=== PATIENT | female | born 1965 | race Caucasian/White ===

== ENCOUNTER 2016-11-10 12:35 | Emergency (ER) | payer OTHER ==
[~2016-11-10] VITALS: Ht 162.6 cm; Wt 79.0 kg
[~2016-11-10 12:35] MED LIST: HYD25 PO; IBUP-1542 PO; OXYC-281 PO
[2016-11-10 12:40] VITALS: Ht 162.6 cm; Wt 79.0 kg
[2016-11-10] MEDS ORDERED: NICARDipine HCL 30 MG CAPSULE PO ONE (13:00)
[2016-11-10] MEDS ORDERED: HYD25 PO (13:01)
[2016-11-10 13:43] VITALS: BP 190/81; PULSE 79
--- NOTE | 2016-11-10 13:44 | ERD ---
ER Documentation Chief Complaint Date/Time DATE: 11/10/16 TIME: 13:41 Chief Complaint seen @ clinic today, BP high HPI 51-year-old female history of prolonged essential hypertension been noncompliant with recommended medication regimen for 8 years. 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 The patient has no complaints today but she went to her current clinic who noted that she has significantly elevated blood pressure and was sent to the emergency room. She denies any headache, chest pain, shortness of breath no dyspnea on exertion. Patient states normal urine output. A structural welder was used. ROS All systems reviewed and are negative except as per history of present illness. Medications Home Meds Active Scripts Hydrochlorothiazide* (Hydrochlorothiazide*) 25 Mg Tab, 25 MG PO DAILY, #30 TAB Prov:DONNA RIVERA MD 11/10/16 Discontinued Scripts Ibuprofen* (Ibuprofen*) 600 Mg Tablet, 600 MG PO Q8 for PAIN AND/OR INFLAMMATION , #30 TAB Prov:JENISE NUNEZ MD 11/05/15 Oxycodone Hcl-Acetaminophen* (Percocet*) 5-325 Mg Tablet, 1 TAB PO TID Y for PAIN, #12 TAB Prov:JENISE NUNEZ MD 11/05/15 Hydrochlorothiazide* (Hydrochlorothiazide*) 25 Mg Tab, 50 MG PO DAILY, #30 TAB Prov:JENISE NUNEZ MD 11/05/15 Allergies Allergies: Coded Allergies: No Known Allergy (Verified , 11/10/16) PMhx/Soc History of Surgery: No Anesthesia Reaction: No Hx Neurological Disorder: No Hx Respiratory Disorders: No Hx Cardiac Disorders: No Hx Psychiatric Problems: No Hx Miscellaneous Medical Probl: Yes (PRECLAMPSIA) Hx Alcohol Use: No Hx Substance Use: No Hx Tobacco Use: No Smoking Status: Never smoker FmHx Family History: No diabetes Physical Exam Vitals Vital Signs Date Time Temp Pulse Resp B/P Pulse Ox O2 Delivery O2 Flow Rate FiO2 11/10/16 12:40 98.1 78 18 0/0 98 Physical Exam General: Well developed, well nourished, no acute distress, evidence of residual left facial nerve palsy that is mild Head: Normocephalic, atraumatic. Eyes: Pupils equally reactive, EOM intact ENT: Moist mucous membranes Neck: Supple, no lymphadenopathy Respiratory: Lungs clear bilaterally, no distress Cardiovascular: RRR, no murmurs, rubs, or gallops Abdominal: Soft, non-tender, non-distended, no peritoneal signs : Deferred MSK: No edema, no unilateral swelling, 5/5 strength Neurologic: Alert and oriented, moving all extremities, normal speech, no focal weakness, no cerebellar signs, facial nerve palsy as documented above that is chronic and unchanged Skin: No rash Psych: Normal mood Results 24 hrs Current Medications Medications (Trade) Dose Ordered Sig/Pritesh Route PRN Reason Start Time Stop Time Status Last Admin Dose Admin Nicardipine HCl (Cardene) 30 mg ONCE ONCE PO 11/10/16 13:00 11/10/16 13:01 DC 11/10/16 12:52 Procedures/MDM Patient's blood pressure was elevated (>120/80) but appears stable without evidence of hypertensive emergency or urgency. The patient was counseled about the risks of hypertension and urged to pursue outpatient monitoring and therapy within a week with their primary care physician. The patient does have significant elevation in her blood pressure likely secondary to prolonged history of noncompliance with antihypertensive medication regimen. The patient does have a facial nerve palsy but this is reported to be old and unchanged. She otherwise has a nonfocal neurologic exam. She exhibits no signs or symptoms concerning for stroke, intracranial process or acute coronary syndrome. Given the patient's significant elevation of blood pressure believe oral reduction of blood pressure would be appropriate with a goal of mean arterial pressure reduction of 20%. The patient was given 30 mg of p.o. Cardene with appropriate reduction and mean arterial pressure. The patient remains asymptomatic and is otherwise extremely well-appearing. She will be initiated on an outpatient antihypertensive regimen and advised strongly to follow-up with primary care physician and observe compliance with her regimen. We discussed follow up with the patient's primary care doctor within 24 to 48 hours as needed. We also discussed return to the emergency room for worsening symptoms or worsening condition. Outpatient referral: [None required] Discharge Medications: Hydrochlorothiazide 25 mg per day Departure Diagnosis: Primary Impression: Hypertensive urgency Condition: Good Patient Instructions: Hypertension, New (Begin Treatment) [facility] Usted se smith hecho un examen mdico de control que le indica que no est en nitesh condicin que requiera tratamiento urgente en el Departamento de Emergencia. Un estudio ms profundo y el tratamiento de espino condicin pueden esperar sin ningn riesgo hasta que usted sea atendida/o en el consultorio de espino mdico o nitesh cl meenakshi. Es responsabilidad suya arreglar nitesh eliseo para el seguimiento del laura. MANEJO DE CONDICIONES NO URGENTES EN EL FUTURO 1) Si usted tiene un mdico de atencin primaria: Usted debera llamar a espino mdico de atencin primaria antes de venir al departamento de emergencia. Despus de las horas de consultorio, espino doctor o espino asociado/a est disponible por telfono. El mdico o enfermero de tra en el servicio telefnico puede asesorarle por carola medio para atender el problema, o laura contrario se puede programar nitesh eliseo. 2) Si usted no tiene un mdico de atencin primaria: Llame al mdico o clnica de referencia que aparece abajo roger las horas de consultorio para hacer nitesh eliseo para que le vean. CLINICAS: [facility] [phone] [address] [facility] [phone] [facility] [phone] [address] [facility]. [facility] [phone] [address] [facility] [address] [place] [id number] [phone] [facility]. [phone] [facility] () Usted se smith hecho un examen mdico de control que le indica que no est en nitesh condicin que requiera tratamiento urgente en el Departamento de Emergencia. Un estudio ms profundo y el tratamiento de espino condicin pueden esperar sin ningn riesgo hasta que usted sea atendida/o en el consultorio de espino mdico o nitesh cl meenakshi. Es responsabilidad suya arreglar nitesh eliseo para el seguimiento del laura. MANEJO DE CONDICIONES NO URGENTES EN EL FUTURO 1) Si usted tiene un mdico de atencin primaria: Usted debera llamar a espino mdico de atencin primaria antes de venir al departamento de emergencia. Despus de las horas de consultorio, espino doctor o espino asociado/a est disponible por telfono. El mdico o enfermero de tra en el servicio telefnico puede asesorarle por carola medio para atender el problema, o laura contrario se puede programar nitesh eliseo. 2) Si usted no tiene un mdico de atencin primaria: Llame al mdico o condado institucions de referencia que aparece abajo roger las horas de consultorio para hacer nitesh eliseo para que le vean. SI USTED NO PUEDE PAGAR PARA TAMMY UN MEDICO puede ir a: [facility] [id number] [place] [address] [facility] [address] [place] [address] [facility] [address] [place] [address] [facility] [address] [place], [place] [id number] Additional Instructions: Llame al doctor nombrado abajo (Referral Sources) MAANA y misael nitesh ELISEO PARA DENTRO DE NITESH SEMANA. Dgale a la secretaria que nosotros le instruimos hacer esta eliseo.Avise o llame si espino condicin se empeora antes de la eliseo. DONNA RIVERA MD Nov 10, 2016 13:44
== END 2016-11-10 14:40 | disposition home or self-care (01) ==
LOC: E/R 12:35
DX: I16.0 Hypertensive urgency (principal)
CPT/HCPCS: 99283